=== PATIENT | male | born 1950 | race Caucasian/White ===

== ENCOUNTER 2019-10-01 18:10 | Observation (INO) | payer MEDICARE ==
[~2019-10-01] VITALS: Ht 177.8 cm; Wt 93.3 kg
[2019-10-01 19:03] LABS: BASO % 0.4 % (0.0-2.0); EOS # 0.1 (0.0-0.7); EOS % 0.6 % (0-4.0); GRAN # 6.9 (1.4-6.5); GRAN % 84.7 % (42.2-75.2); HEMATOCRIT 46.5 % (42.0-52.0); HEMOGLOBIN 15.2 g/dl (13.5-18.0); LYMPH # 0.8 (1.2-3.4); LYMPH % 10.4 % (20.0-51.0); MEAN CELL VOLUME 93 fl (80.0-100.0); MEAN CORPUSCULAR HEMOGLOBIN 31 pg (27.0-31.0); MEAN CORPUSCULAR HGB CONC 33 g/dl (33.0-37.0); MEAN PLATELET VOLUME 9.8 fl (7.4-10.4); MONO # 0.3 (0.1-0.6); MONO % 3.7 % (1.7-9.3); PLATELET COUNT 118 K/mm3 (130-400); RED BLOOD COUNT 4.98 M/mm3 (4.20-5.60); REDCELL DISTRIBUTION WIDTH-CV 12.5 % (11.5-14.5)
[2019-10-01 19:15] LABS: ALANINE AMINOTRANSFERASE 15 U/L (21-72); ALBUMIN 4.3 gm/dL (3.5-5.0); ALKALINE PHOSPHATASE 78 U/L (50-136); ANION GAP 8 mmol/L (7-16); AST,SGOT 31 U/L (15-37); BILIRUBIN,TOTAL 0.7 mg/dL (0.0-1.0); BLOOD UREA NITROGEN 18 mg/dL (9-20); CALCIUM 8.9 mg/dL (8.4-10.2); CARBON DIOXIDE 29 mmol/L (22-30); CHLORIDE 103 mmol/L (98-107); CREATININE, serum 0.85 (0.66-1.25); GLUCOSE 142 mg/dL (74-106); LIPASE 109 U/L (23-300); POTASSIUM 4.3 mmol/L (3.4-5.0); SODIUM 140 mmol/L (137-145); TOTAL PROTEIN 7.6 gm/dL (6.4-8.2)
[2019-10-01 19:28] LABS: TROPONIN-I < 0.012 ng/mL (0.000-0.035)
[2019-10-01] MEDS ORDERED: PRILOSEC 20MG20 MG PO (20:25)
[2019-10-01] MEDS ORDERED: PROSCAR 5MG5 MG PO (20:26)
[2019-10-01] MEDS ORDERED: FLOMAX 0.40.4 MG/CAP PO (20:26)
[2019-10-01] MEDS ORDERED: XARELTO20 MG PO (20:26)
[2019-10-01] MEDS ORDERED: TYLENOL W/COD1 UDTAB PO (20:27)
[2019-10-01 22:20] VITALS: BP 124/64; PULSE 51; TEMP 97.8
--- NOTE | 2019-10-01 23:03 | NUR ---
Pt. arrived to the floor via stretcher. Pt. is A&OX3, assessment complete. IV to lt. ac patent, IV fluids and MICROPHONE BOOM OPERATOR started. Pt. reported pain at an 8 on pain scale. Pt. denies further needs, call light within reach.
[2019-10-01 23:53] VITALS: BP 132/71; PULSE 60; TEMP 98.5
[2019-10-02] VITALS (11 sets, daily range): BP systolic 125–149; BP diastolic 61–78; PULSE 64–78; TEMP 97.8–99.1
[2019-10-02 07:28] LABS: BASO % 0.1 % (0.0-2.0); EOS % 0.1 % (0-4.0); GRAN # 7.9 (1.4-6.5); GRAN % 89.8 % (42.2-75.2); HEMATOCRIT 45.3 % (42.0-52.0); HEMOGLOBIN 15.1 g/dl (13.5-18.0); LYMPH # 0.5 (1.2-3.4); LYMPH % 5.7 % (20.0-51.0); MEAN CELL VOLUME 89 fl (80.0-100.0); MEAN CORPUSCULAR HEMOGLOBIN 30 pg (27.0-31.0); MEAN CORPUSCULAR HGB CONC 33 g/dl (33.0-37.0); MEAN PLATELET VOLUME 10.3 fl (7.4-10.4); MONO # 0.4 (0.1-0.6); PLATELET COUNT 121 K/mm3 (130-400); RED BLOOD COUNT 5.09 M/mm3 (4.20-5.60); REDCELL DISTRIBUTION WIDTH-CV 12.5 % (11.5-14.5)
[2019-10-02 07:36] LABS: ALBUMIN 3.8 gm/dL (3.5-5.0); BILIRUBIN,TOTAL 1.6 mg/dL (0.0-1.0); CALCIUM 8.4 mg/dL (8.4-10.2); CREATININE, serum 0.8 (0.66-1.25); POTASSIUM 4.3 mmol/L (3.4-5.0); TOTAL PROTEIN 6.9 gm/dL (6.4-8.2)
--- NOTE | 2019-10-02 10:00 | NUR ---
Patient wanted to take a shower but when attempting to get up his pain jumped up to an 8 on a scale of 0-10. He became diaphoretic and nauseated. Zofran given for nausea. Hooked patient back up to diluadid [employer] W[employer]DL[employer] WARDEN. Patient needs reminders on pressing the button for pain control. Kimberly the RESOURCE MANAGER FORESTER is helping patient get cleaned up at this time. Vital signs checked and are stable. No other changes at this time. Call light within reach.
--- NOTE | 2019-10-02 12:35 | NUR ---
First visit from the manufacturing storeperson. No needs right now.
--- NOTE | 2019-10-02 16:29 | NUR ---
NÉSTOR met with the patient and his significant other, Tameka Lino (ph#[phone]), to discuss discharge plan. The patient lives in [place] with Tameka. He reports independence with ADLs and does not have any DME. The patient's PCP is Dr. Virginia Kong and he receives his medications at [facility]. He reports no difficulties obtaining his meds. The patient does not have advanced directives and he was not interested in completing them at this time. He states that he already has the forms at home and that his emergency contact and next of kin is Tameka. The patient plans to return home with Tameka upon discharge. No additional needs at this time.
--- NOTE | 2019-10-02 17:10 | NUR ---
Patient is going off the floor for surgery. Consent signed and on chart. Patients family is here with patient. Pre-ops given as ordered.
--- NOTE | 2019-10-02 20:30 | NUR ---
Pt. to the floor from PACU. Pt. is A&OX3, assessment complete. IV to Lt. ac patent, IV fluids infusing per orders. Pt. reports pain at a 4 on pain scale. Pt. denies need for pain meds at this time. Five abd. lap sites noted CDI with bandaids. Pt. denies further needs, call light within reach.
[2019-10-03] VITALS (7 sets, daily range): BP systolic 104–128; BP diastolic 52–67; PULSE 63–83; TEMP 97.7–99.9
[2019-10-03 06:57] LABS: BASO % 0.2 % (0.0-2.0); EOS % 0.2 % (0-4.0); GRAN # 7.6 (1.4-6.5); GRAN % 84.9 % (42.2-75.2); HEMATOCRIT 41.6 % (42.0-52.0); HEMOGLOBIN 13.6 g/dl (13.5-18.0); LYMPH # 0.9 (1.2-3.4); LYMPH % 9.7 % (20.0-51.0); MEAN CELL VOLUME 91 fl (80.0-100.0); MEAN CORPUSCULAR HEMOGLOBIN 30 pg (27.0-31.0); MEAN CORPUSCULAR HGB CONC 33 g/dl (33.0-37.0); MEAN PLATELET VOLUME 9.9 fl (7.4-10.4); MONO # 0.4 (0.1-0.6); MONO % 4.3 % (1.7-9.3); PLATELET COUNT 95 K/mm3 (130-400); RED BLOOD COUNT 4.58 M/mm3 (4.20-5.60); REDCELL DISTRIBUTION WIDTH-CV 12.8 % (11.5-14.5)
[2019-10-03 07:08] LABS: ALBUMIN 3.1 gm/dL (3.5-5.0); BILIRUBIN,TOTAL 1.7 mg/dL (0.0-1.0); CALCIUM 8.1 mg/dL (8.4-10.2); CREATININE, serum 0.93 (0.66-1.25); POTASSIUM 4.3 mmol/L (3.4-5.0)
--- NOTE | 2019-10-03 08:00 | NUR ---
PATIENT RESTING IN BED WITH HIS BREAKFAST TRAY AT THE BEDSIDE THIS MORNING. PATIENT IS A&OX4. IRREGULAR HEART RHYTHM WITH REGULAR RATE NOTED. VSS, SHALLOW BREATHING NOTED. PATIENT DENIES A PRODUCTIVE COUGH OR SHORTNESS OF BREATH. ABDOMEN DISTENDED BUT SOFT UPON PALPATION. ABDOMINAL LAP SITES X5 MARYANNE WITH BANDAIDS IN PLACE AND ARE CD&I. PATIENT BELCHING BUT DENIES PASSING FLATUS. NON-PITTING EDEMA TO BLE. CALL LIGHT WITHIN REACH. PATIENT DENIES ANY OTHER NEEDS AT THIS TIME.
--- NOTE | 2019-10-03 11:49 | NUR ---
The patient's status was switched from inpatient to observation. NÉSTOR and money market dealer, Yael, met with the patient to inform. SW presented and explained the BENNETT form to the patient. The patient verbalized understanding, signed, and he was provided a copy. NÉSTOR and money market dealer answered all questions. No other additional needs at this time.
--- NOTE | 2019-10-03 15:50 | NUR ---
REPORT GIVEN TO ANDREA COHEN.
--- NOTE | 2019-10-03 18:16 | NUR ---
Patient laying in bed, family at the bedside. Patient A&O, reporting pain in right side, pain medication previously administered by nurse. VSS3L NC O2. IV CDI, fluids infusing. 5 Lap sites abdomen CDI. No further needs expressed from patient. Call light within reach
--- NOTE | 2019-10-03 21:50 | NUR ---
Transferred to medical floor. X5 lap sites CDI. Denies pain at this time. Denies needs. call light in reach.
--- NOTE | 2019-10-03 21:56 | NUR ---
PATIENT DOING WELL THIS SHIFT. ALERT AND ORIENTED. STATES PAIN 4/10 TO ABD, AND SLIGHT HEADACHE. DENIES NEED FOR PAIN MEDICATION. PRN MOTRIN GIVEN FOR SLIGHT FEVER 99.9. X5 LAPS CDI WITH BANDAIDS. PATIENT TRANSFER TO ROOM 3119 AT 2155. REPORT GIVEN TO RILEY MENDEZ.
--- NOTE | 2019-10-04 02:00 | NUR ---
Resting in bed. Denies needs. Call light in reach.
[2019-10-04 04:19] VITALS: BP 115/66; PULSE 69; TEMP 97.8
[2019-10-04 06:19] VITALS: BP 118/58; PULSE 66; TEMP 98.2
--- NOTE | 2019-10-04 06:21 | NUR ---
Patient reports pain in ABD. Provided with PRN motrin at this time. Reports difficulty breathing and sweating. VS taken and stable. Resolved with breathing techniques. Denies other needs at this time. Will monitor. Otherwise uneventful night.
--- NOTE | 2019-10-04 07:03 | NUR ---
Report given to ANDREA George
[2019-10-04 07:41] VITALS: BP 111/70; PULSE 72; TEMP 97.9
--- NOTE | 2019-10-04 08:13 | NUR ---
Pt awake and alert this morning, C/O discomfort at surgical sites, shift assessment complete, left Pt call light in reach, bed in lowest position.
[2019-10-04 12:20] VITALS: BP 136/67; PULSE 66; TEMP 97.7
[2019-10-04 15:51] VITALS: BP 127/73; PULSE 75; TEMP 98.2
[2019-10-04] MEDS ORDERED: NORCO 325 MG-51 TAB PO ×3 (17:04→17:24)
[2019-10-04] MEDS ORDERED: AMOXICILLIN 8751 TAB PO (17:04)
--- NOTE | 2019-10-04 19:13 | NUR ---
Pt discharged to home, escorted Pt to entrance, left with family via private auto.
== END 2019-10-04 19:34 | disposition home or self-care (01) ==
LOC: COL.ER 18:10 → SURG 20:43 → MEDICAL 10-03 21:55
PROVIDERS: Emergency Medicine; ADMIT Surgery
DX: K80.12 Calculus of gallbladder with acute and chronic cholecystitis without obstruction (principal); M47.892 Other spondylosis, cervical region; N40.0 Benign prostatic hyperplasia without lower urinary tract symptoms; I48.91 Unspecified atrial fibrillation; K21.9 Gastro-esophageal reflux disease without esophagitis; G43.909 Migraine, unspecified, not intractable, without status migrainosus; Z86.718 Personal history of other venous thrombosis and embolism; Z79.01 Long term (current) use of anticoagulants
CPT/HCPCS: G0378; G0379; J1170; J2270; J2405; J2543; J2704; J3010; J7030; J7042; J7120; Q9967

== ENCOUNTER → 2021-08-18 | Outpatient (CLI) | payer MEDICARE ==
[~2021-08-18] MED LIST: AMOXICILLIN 8751 TAB PO; FLOMAX 0.40.4 MG/CAP PO; NORCO 325 MG-51 TAB PO; PRILOSEC 20MG20 MG PO; PROSCAR 5MG5 MG PO; TYLENOL W/COD1 UDTAB PO; XARELTO20 MG PO
== END ==
LOC: COL.VAS 12:29
DX: D68.2 Hereditary deficiency of other clotting factors (principal); I82.412 Acute embolism and thrombosis of left femoral vein; I82.432 Acute embolism and thrombosis of left popliteal vein; Z86.718 Personal history of other venous thrombosis and embolism

== ENCOUNTER → 2022-01-19 | Outpatient (CLI) | payer MEDICARE | LOC: COL.VAS 09:48 | DX: Z01.818 Encounter for other preprocedural examination (principal); M17.11 Unilateral primary osteoarthritis, right knee; Z86.718 Personal history of other venous thrombosis and embolism ==